=== PATIENT | male | born 1980 | race American Indian/Alaskan Native ===

== ENCOUNTER 2017-08-17 14:39 | Emergency (ER) | payer OTHER ==
[2017-08-17 14:45] VITALS: BP 136/83
--- NOTE | 2017-08-17 16:41 | Emergency Department Report ---
<RADHA OWUSU - Last Filed: 08/17/17 16:41> ED General Adult HPI - General Chief complaint: Extremity Injury, Upper Stated complaint: BILATERAL HAND NUMBNESS Time Seen by Provider: 08/17/17 16:39 - Related Data Home Medications Medication Instructions Recorded Confirmed Last Taken No Known Home Medications [No 08/17/17 08/17/17 Unknown Reported Home Medications] Allergies Allergy/AdvReac Type Severity Reaction Status Date / Time No Known Allergies Allergy Unverified 08/17/17 14:41 ED Review of Systems ROS: Stated complaint: BILATERAL HAND NUMBNESS Other details as noted in HPI ED Past Medical Hx - Medications Home Medications: Home Medications Medication Instructions Recorded Confirmed Last Taken Type No Known Home Medications [No 08/17/17 08/17/17 Unknown History Reported Home Medications] ED Course Vital Signs 08/17/17 14:41 Temperature 97.6 F Pulse Rate 83 Respiratory 16 Rate Blood Pressure 136/83 O2 Sat by Pulse 95 Oximetry Critical care attestation.: If time is entered above; I have spent that time in minutes in the direct care of this critically ill patient, excluding procedure time. ED Disposition Clinical Impression: Forearm strain, Bilateral hand numbness Disposition: DC-01 TO HOME OR SELFCARE Condition: Stable Instructions: Muscle Strain (ED) Additional Instructions: Patient to follow up with primary care in 3-5 days. Patient see orthopedist in 2-4 days. Increase water. Patient start multivitamin. Patient take Tylenol/ ibuprofen when necessary for pain. Patient return to ER if condition worsens Referrals: PRIMARY CARE, [Primary Care Provider] - 3-5 Days Forms: AMA Form <SARAH CAO III - Last Filed: 08/17/17 16:58> ED General Adult HPI - General Source: patient Mode of arrival: Ambulatory Limitations: No Limitations - History of Present Illness Initial comments: Patient is a 36-year-old male presents to emergency room with numbness in his hands on and off for 3 weeks. Patient states he is not having any numbness at this time. Patient states he has arm tingling that time. 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 ED Review of Systems Constitutional: denies: chills, fever Eyes: denies: eye pain, eye discharge, vision change ENT: denies: ear pain, throat pain Respiratory: denies: cough, shortness of breath, wheezing Cardiovascular: denies: chest pain, palpitations Endocrine: no symptoms reported Gastrointestinal: denies: abdominal pain, nausea, diarrhea Genitourinary: denies: urgency, dysuria Musculoskeletal: denies: back pain, joint swelling, arthralgia Skin: denies: rash, lesions Neurological: numbness. denies: headache, weakness, paresthesias Psychiatric: denies: anxiety, depression Hematological/Lymphatic: denies: easy bleeding, easy bruising ED Past Medical Hx - Past Medical History Previous Medical History?: No - Surgical History Past Surgical History?: Yes Additional Surgical History: pin to left arm - Family History Family history: hypertension - Social History Smoking Status: Former Smoker Substance Use Type: Alcohol ED Physical Exam - General Limitations: No Limitations General appearance: alert, in no apparent distress - Head Head exam: Present: atraumatic, normocephalic - Eye Eye exam: Present: normal appearance - ENT ENT exam: Present: mucous membranes moist - Neck Neck exam: Present: normal inspection - Respiratory Respiratory exam: Present: normal lung sounds bilaterally. Absent: respiratory distress - Cardiovascular Cardiovascular Exam: Present: regular rate, normal rhythm. Absent: systolic murmur, diastolic murmur, rubs, gallop - GI/Abdominal GI/Abdominal exam: Present: soft, normal bowel sounds - Rectal Rectal exam: Present: deferred - Extremities Exam Extremities exam: Present: normal inspection, full ROM, normal capillary refill , other ( carpal tunnel testing negative). Absent: tenderness, pedal edema, joint swelling, calf tenderness - Back Exam Back exam: Present: normal inspection - Neurological Exam Neurological exam: Present: alert, oriented X3 - Psychiatric Psychiatric exam: Present: normal affect, normal mood - Skin Skin exam: Present: warm, dry, intact, normal color. Absent: rash ED Medical Decision Making - Medical Decision Making Patient refused workup due to not wanting ABR bill. Patient signed AMA. Patient made aware of the risk. Patient voiced understanding. Patient stable for discharge. We'll discharge patient home - Differential Diagnosis carpal tunnel. Forearm strain. Vitamin imbalance. ED Disposition Is pt being admited?: No Does the pt Need Aspirin: No Time of Disposition: 16:57
== END 2017-08-17 17:11 | disposition home or self-care (01) ==
LOC: ED 14:39
DX: R20.0 Anesthesia of skin (principal); I10 Essential (primary) hypertension; Z87.891 Personal history of nicotine dependence
CPT/HCPCS: 99282